=== PATIENT | female | born 1990 | race Caucasian/White ===

== ENCOUNTER 2019-04-20 12:09 | Emergency (ER) | payer OTHER ==
[2019-04-20 12:18] VITALS: BP 104/62; PULSE 72; TEMP 98.2; BMI 24.5
[2019-04-20] MEDS ORDERED: IBUPROFEN 600 MG TABLET (FP) PO ONE ×2 (12:32→12:36)
--- NOTE | 2019-04-20 12:36 | PDOC ---
History of Present Illness - General Chief Complaint: Injury Stated Complaint: RT FOOT PAIN Time Seen by Provider: 04/20/19 12:12 History Source: Patient Exam Limitations: No Limitations - History of Present Illness Initial Comments: 04/20/19 12:32 28-year-old female no past medical history here today complaining of injury to her right foot. Patient was playing soccer she fell forward and subsequently hyper dorsiflexed her right foot. Has been having pain just below the toes with walking. States the injury happened just prior to arrival. Denies any knee or hip pain. No head injury or upper extremity injury sustained during her fall. Has had minimal swelling and no ecchymosis since the injury. Did not take anything for pain prior to arrival. No previous history of ankle or foot injuries or previous orthopedic surgeries. Patient states she is not Past History - Past Medical History Allergies/Adverse Reactions: Allergies Allergy/AdvReac Type Severity Reaction Status Date / Time No Known Allergies Allergy Verified 04/20/19 12:09 Home Medications: Ambulatory Orders Ibuprofen [Motrin -] 600 mg PO TID PRN #60 tablet MDD 3 04/20/19 - Suicide/Smoking/Psychosocial Hx Smoking History: Never smoked Have you smoked in the past 12 months: No Information on smoking cessation initiated: No Hx Alcohol Use: No Drug/Substance Use Hx: No Review of Systems - Review of Systems Constitutional: No: Chills, Diaphoresis, Unexplained wgt Loss Respiratory: No: Cough, Shortness of Breath Cardiac (ROS): No: Chest Pain Musculoskeletal: Yes: Joint Pain Integumentary: No: Bruising Neurological: No: Numbness, Weakness All Other Systems: Reviewed and Negative *Physical Exam - Vital Signs Last Vital Signs Temp Pulse Resp BP Pulse Ox 98.2 F 72 20 104/62 100 04/20/19 12:09 04/20/19 12:09 04/20/19 12:09 04/20/19 12:09 04/20/19 12:09 - Physical Exam Comments: 04/20/19 12:34 Awake alert no acute distress. Patient's head is atraumatic. Lungs are clear bilaterally. Heart is regular without any murmurs rubs or gallops. Pelvis is stable nontender bilateral knees are nontender full range of motion. Patient's right ankle has negative bilateral malleoli tenderness. Full range of motion at the ankle. The right foot is tender over the distal third and fourth metatarsal. There is pain with dorsiflexion of the toes. No noted ecchymosis or swelling she is also tender over the mid foot on the plantar surface. Distally the patient is neurovascularly intact 2+ DP PT pulses ED Treatment Course - RADIOLOGY Radiology Studies Ordered: Category Date Time Status ANKLE-RIGHT [RAD] Stat Radiology 04/20/19 12:31 Ordered FOOT-RIGHT [RAD] Stat Radiology 04/20/19 12:31 Ordered Medical Decision Making - Medical Decision Making 04/20/19 12:35 19-year-old female with right foot injury sustained playing soccer. Differential includes foot sprain versus fracture. Motrin for her pain ice for x -rays of the right ankle and foot 04/20/19 13:03 pt with proximal 1 - 4 MT fractures, possible ricky sign between first and second metatarsal. sulaiman obtain ct foot r/o lisfranc injury. 04/20/19 13:51 pt wtijh second third and fourth mt fx, will put in posterior splint nonweight bearing. consult dr thomas/ frank. real awaiting call back 04/20/19 14:10 pt case d/w Ven[facility] ortho, recommend posterior splint. strict elevation, fu tomorrow in office at [address]. *DC/Admit/Observation/Transfer Diagnosis at time of Disposition: Foot fracture - Discharge Dispostion Disposition: HOME Decision to Admit order: No - Prescriptions Prescriptions: Ibuprofen [Motrin -] 600 mg PO TID PRN #60 tablet MDD 3 PRN Reason: Pain - Referrals Referrals: Gage Marie MD [Staff Physician] - - Patient Instructions Additional Instructions: you need to elevated your foot to reduce swelling. ice to reduce swelling every 2 hrs while awake. you can take motrin 600 mg every 8 hours as needed. you have broken three bones in your foot. you should follow up with a orthopedist. call DR Thomas or Dr marie, see referral information call to confirm you should be seen tomorrow. let them know you were seen in emergency room and were told to come to office 04/21. you should not put any weight on your foot. elevate your leg for the next 24 hour until followup. use crutches. return for any problems or concerns, worsening pain, color change to toes, numbness or tingling. - Post Discharge Activity Forms/Work/School Notes: Back to Work
== END 2019-04-20 14:50 | disposition home or self-care (01) ==
LOC: FER 12:09
PROC: 2W3QX1Z Immobilization of Right Lower Leg using Splint (ICD-10-PCS; principal; 2019-04-20)
DX: S92.901A Unspecified fracture of right foot, initial encounter for closed fracture (principal); W18.39XA Other fall on same level, initial encounter; Y93.66 Activity, soccer; Y92.322 Soccer field as the place of occurrence of the external cause
CPT/HCPCS: 73610-TC-RT-FY; 73630-TC-RT-FY; 73700-TC-RT; 99283-25

== ENCOUNTER 2019-04-28 22:04 | Emergency (ER) | payer OTHER ==
[2019-04-28 22:13] VITALS: BP 114/75; PULSE 62; TEMP 98.5; BMI 23.6
--- NOTE | 2019-04-28 22:29 | PDOC ---
Documentation entered by Ruben Hernandez SCRIBE, acting as scribe for Demetrio Gonzalez MD. Demetrio Gonzalez MD: This documentation has been prepared by the David krishnan Aiswarya, SCRIBE, under my direction and personally reviewed by me in its entirety. I confirm that the documentation accurately reflects all work, treatment, procedures, and medical decision making performed by me. History of Present Illness - General Chief Complaint: Pain, Acute Stated Complaint: FRACTURED FOOT LAST WEEK,PAIN History Source: Patient Exam Limitations: No Limitations - History of Present Illness Initial Comments: 04/28/19 22:42 The patient is a 28 year old female, with no significant PMH, who presents to the emergency department with right toe pain. The patient states she fractured her right foot last week and currently has a cast in place. The patient noticed pain, swelling and increased warmth to the right toes after she came back from work today. She reports pain has worsened since before and mentions she was not able to rest today. The patient denies any numbness or tingling. Denies any injury or falls. Denies any fever or chills. PAST MEDICAL HISTORY: no significant history PAST SURGICAL HISTORY: no significant history FAMILY HISTORY: no pertinent history SOCIAL HISTORY: Pt lives with family and is employed. MEDICATIONS: reviewed ALLERGIES: As per nursing notes Past History - Past Medical History Allergies/Adverse Reactions: Allergies Allergy/AdvReac Type Severity Reaction Status Date / Time No Known Allergies Allergy Verified 04/28/19 22:06 Home Medications: Ambulatory Orders NK [No Known Home Medication] 04/28/19 COPD: No - Suicide/Smoking/Psychosocial Hx Smoking History: Never smoked Have you smoked in the past 12 months: No Hx Alcohol Use: No Drug/Substance Use Hx: No Review of Systems - Review of Systems Able to Perform ROS?: Yes Comments:: 04/28/19 22:42 General: No fevers or chills, no weakness, no weight loss HEENT: No change in vision. No sore throat,. No ear pain CardioVascular: No chest pain or shortness of breath Respiratory:No cough, or wheezing. Gastrointestinal: no nausea, vomiting, diarrhea or constipation, No rectal bleeding Genitourinary: No dysuria, hematuria, or frequency Musculoskeletal: +right foot cast Neurologic: No headache, vertigo, dizziness or loss of consciousness Psychiatric: nor depression Skin: No rashes or easy bruising Endocrine: no increased thirst or abnormal weight change Allergic: no skin or latex allergy All other systems reviewed and normal *Physical Exam - Vital Signs Last Vital Signs Temp Pulse Resp BP Pulse Ox 98.5 F 62 16 114/75 100 04/28/19 22:10 04/28/19 22:10 04/28/19 22:10 04/28/19 22:10 04/28/19 22:10 - Physical Exam Comments: 04/28/19 22:42 GENERAL: The patient is awake, alert, and fully oriented, in no acute distress. HEAD: Normal with no signs of trauma. EYES: Pupils equal, round and reactive to light, extraocular movements intact, sclera anicteric, conjunctiva clear. EXTREMITIES: Normal range of motion, no edema. NEUROLOGICAL: Normal speech, normal gait. PSYCH: Normal mood, normal affect. SKIN:+ right foot cast in place with mild ecchymosis to the toe. . No obvious edema. Toes are warm. Capillary refill normal and sensation intact. Neurovascular intact. *DC/Admit/Observation/Transfer Diagnosis at time of Disposition: Foot fracture Qualifiers: Encounter type: subsequent encounter Fracture type: closed Laterality: right Fracture healing: with routine healing Qualified Code(s): S92.901D - Unspecified fracture of right foot, subsequent encounter for fracture with routine healing Foot fracture, right Qualifiers: Encounter type: initial encounter - Discharge Dispostion Condition at time of disposition: Stable Decision to Admit order: No - Referrals - Patient Instructions Additional Instructions: Elevate the leg and foot for the next 24 hours toes should be above the heart as much as possible. Return to the emergency department immediately with ANY new, persistent or worsening symptoms. Continue any medications as previously prescribed by your physician. You should follow up with your primary doctor as soon as possible regarding today's emergency department visit. . Please make sure your doctor reviews the results of your emergency evaluation. Thank you for coming to the Emergency Department today for your care. It was a pleasure to see you today. Please note that your evaluation is INCOMPLETE until you follow-up with your doctor. - Post Discharge Activity
== END 2019-04-28 22:33 | disposition home or self-care (01) ==
LOC: FER 22:04
DX: S92.901D Unspecified fracture of right foot, subsequent encounter for fracture with routine healing (principal); X58.XXXD Exposure to other specified factors, subsequent encounter; Y93.9 Activity, unspecified; Y92.9 Unspecified place or not applicable
CPT/HCPCS: 99281-25

== ENCOUNTER 2019-09-17 08:34 | Emergency (ER) | payer OTHER ==
[2019-09-17 08:42] VITALS: BP 112/77; PULSE 80; TEMP 98.9; BMI 25.4
[2019-09-17] MEDS ORDERED: SODIUM CHLORIDE 1,000 ML IV STA (08:46)
[2019-09-17] MEDS ORDERED: ONDANSETRON 4 MG/2 ML VIAL IVPB ONE (08:47)
--- NOTE | 2019-09-17 08:52 | PDOC ---
History of Present Illness - General Chief Complaint: Diarrhea Stated Complaint: "I have been vomiting and having diarrhea Time Seen by Provider: 09/17/19 08:45 - History of Present Illness Initial Comments: 09/17/19 08:53 Chief complaint: Nausea vomiting and diarrhea HPI: Woke up at 4 AM with crampy lower abdominal pain, subsequently experienced approximately 4 episodes of vomiting and diarrhea. No blood. Clear. No persistent abdominal pain. Review of systems: Denies fever/chills, headache, URI symptoms, sore throat, cough, chest pain, shortness of breath, abdominal pain, hematemesis, melena, bloody stool, urinary tract symptoms, vaginal bleeding or discharge, lightheadedness or dizziness, visual or focal neurologic symptoms. Past medical history: Otherwise healthy female. Recently fractured ankle which is healed. On control implant. No menses. Social history: Denies tobacco alcohol or drugs. Fully active and without disability. Visited brothers family yesterday, whose children had a stomach virus. Patient is a vegan, no suspicious food ingestions yesterday. Family history: Reviewed and noncontributory. Physical exam: Alert and oriented well-developed well-nourished no acute distress cheerful and cooperative. No abdominal pain. Mild nausea. Afebrile, vital signs normal No pallor or icterus. PERRLA, ENT clear Neck supple without bruit mass or nodes Chest clear, full breath sounds bilaterally CV regular without murmur rub or gallop. No tachycardia Abdomen nondistended. Bowel sounds normal. Soft without mass tenderness or organomegaly. Extremities no CCE Skin clear, no rash, adequate turgor, mildly dry mucous membranes Neurological intact. Gait stable and unimpaired Impression: Viral gastroenteritis, possible mild dehydration. No abdominal pain or other sign of serious gastrointestinal disease Plan: CBC, chemistries, UA, intravenous fluids and Zofran. Observation and further treatment depending on results and response to therapy. Past History - Past Medical History Allergies/Adverse Reactions: Allergies Allergy/AdvReac Type Severity Reaction Status Date / Time No Known Allergies Allergy Verified 09/17/19 08:36 Home Medications: Ambulatory Orders Ondansetron [Zofran *Odt*] 4 mg SL TID PRN #10 od.tablet 09/17/19 COPD: No Other medical history: ankle fracture - Psycho Social/Smoking Cessation Hx Smoking History: Never smoked Have you smoked in the past 12 months: No Hx Alcohol Use: No Drug/Substance Use Hx: No *Physical Exam - Vital Signs Last Vital Signs Temp Pulse Resp BP Pulse Ox 98.9 F 80 18 112/77 100 09/17/19 08:38 09/17/19 08:38 09/17/19 08:38 09/17/19 08:38 09/17/19 08:38 ED Treatment Course - LABORATORY CBC & Chemistry Diagram: 09/17/19 09:05 09/17/19 09:05 Medical Decision Making - Medical Decision Making 09/17/19 11:46 Laboratories reveal a white count of 17,000, otherwise no significant abnormalities. This is consistent with a viral gastroenteritis. Patient is much improved. There has been no vomiting or diarrhea. Nausea is controlled. Fully ambulatory and in no distress at discharge, Zofran as needed for nausea, Imodium for diarrhea, and fluids recommended. She is instructed to return to the ER if further serious symptoms develop. Discharge - Discharge Information Problems reviewed: Yes Clinical Impression/Diagnosis: Viral gastroenteritis Condition: Improved Disposition: HOME - Admission No - Additional Discharge Information Prescriptions: Ondansetron [Zofran *Odt*] 4 mg SL TID PRN #10 od.tablet PRN Reason: Nausea And/Or Vomiting - Follow up/Referral - Patient Discharge Instructions Patient Printed Discharge Instructions: DI for Viral Gastroenteritis -- Adult Additional Instructions: Clear liquids until symptoms resolved. Medication as directed for persistent nausea. [id number] Imodium as directed on the package for severe diarrhea. Return to ER or see primary physician if further symptoms develop, including fever/chills, abdominal pain, persistent vomiting or diarrhea, or other serious symptoms - Post Discharge Activity
[2019-09-17] MEDS ORDERED: ONDANSETRON 4 MG/2 ML VIAL ONE (08:55)
[2019-09-17 09:13] LABS: HEMOGLOBIN 14.8 GM/dl (10.7-15.3); RDW 11.7 % (11.6-15.6)
[2019-09-17 09:21] LABS: HEMATOCRIT 43.8 % (32.4-45.2); MCH 29.5 pg (25.7-33.7); MCHC 33.7 g/dl (32.0-36.0); MEAN CELL VOLUME 87.5 fl (80-96); MEAN PLT VOLUME 9.1 fl (7.5-11.1); PLATELET COUNT 256 K/MM3 (134-434); RBC 5.01 M/mm3 (3.60-5.2)
[2019-09-17 09:23] LABS: ALBUMIN 4.4 g/dl (3.4-5.0); BILIRUBIN,TOTAL 0.9 mg/dl (0.2-1); CALCIUM 8.9 mg/dl (8.5-10); CREATININE 0.6 mg/dl (0.55-1.3); POTASSIUM 3.9 mmol/L (3.5-5.1); TOT PROT 7.9 g/dl (6.4-8.2)
[2019-09-17 09:46] LABS: EPITHELIAL CELLS FEW /hpf
[2019-09-17 09:55] LABS: PLATELET ESTIMATE ADEQUATE
== END 2019-09-17 11:41 | disposition home or self-care (01) ==
LOC: FER 08:34
PROC: 3E033GC Introduction of Other Therapeutic Substance into Peripheral Vein, Percutaneous Approach (ICD-10-PCS; principal; 2019-09-17)
PROC: 3E0337Z Introduction of Electrolytic and Water Balance Substance into Peripheral Vein, Percutaneous Approach (ICD-10-PCS; 2019-09-17)
DX: A08.4 Viral intestinal infection, unspecified (principal)
CPT/HCPCS: 36415; 80053; 81003; 81015; 84703; 85025; 99283-25; J7030

== ENCOUNTER 2019-10-25 13:04 | Emergency (ER) | payer OTHER ==
[2019-10-25 13:17] VITALS: BP 111/75; PULSE 63; TEMP 98.5; BMI 24.5
[2019-10-25] MEDS ORDERED: predniSONE 20 MG TABLET (UD) PO ONE (13:31)
--- NOTE | 2019-10-25 13:41 | PDOC ---
History of Present Illness - General Chief Complaint: Eye Problem Stated Complaint: HAS BEEN DIAGNOSISED WITH LAZO'S PALSY LEFT EYE BU Time Seen by Provider: 10/25/19 13:08 - History of Present Illness Initial Comments: 10/25/19 13:34 28 F with no PMH presents to ED because she was diagnosed with Lazo's palsy 2 days ago but has been unable to fill her prescriptions. Pt states that 3 days ago, she noticed some drooping of her L face. She went to [facility] ED the day after and was started on prednisone and valacyclovir. Pt also was tested for Lyme, though the result did not come back yet. Pt was empirically started on doxy. Today, pt presents to ED because she was unable to obtain her prescriptions due to her insurance expiring. She states that she will be able to fill her scripts on Sunday when her new insurance begins. Pt denies any new complaints. Notes that her facial droop has improved. Past History - Past Medical History Allergies/Adverse Reactions: Allergies Allergy/AdvReac Type Severity Reaction Status Date / Time No Known Allergies Allergy Verified 09/17/19 08:36 Home Medications: Ambulatory Orders Prednisone 60 mg PO ONCE #6 tablet 10/25/19 COPD: No - Psycho Social/Smoking Cessation Hx Smoking History: Never smoked Have you smoked in the past 12 months: No Information on smoking cessation initiated: No Hx Alcohol Use: Yes (social) Drug/Substance Use Hx: No Review of Systems - Review of Systems Comments:: 10/25/19 13:41 "GENERAL/CONSTITUTIONAL: No fever or chills. No weakness. HEAD, EYES, EARS, NOSE AND THROAT: No change in vision. No ear pain or discharge. No sore throat. CARDIOVASCULAR: No chest pain, no shortness of breath, no loss of consciousness RESPIRATORY: No cough, wheezing, or hemoptysis. GASTROINTESTINAL: No nausea, vomiting, diarrhea or constipation. GENITOURINARY: No dysuria, frequency, or change in urination. MUSCULOSKELETAL: No joint or muscle swelling or pain. No neck or back pain. SKIN: No rash NEUROLOGIC: No vertigo, no change in strength/sensation. ENDOCRINE: No increased thirst. No abnormal weight change. HEMATOLOGIC/LYMPHATIC: No anemia, easy bleeding, or history of blood clots. ALLERGIC/IMMUNOLOGIC: No hives or skin allergy. *Physical Exam - Vital Signs Last Vital Signs Temp Pulse Resp BP Pulse Ox 98.5 F 63 16 111/75 99 10/25/19 13:07 10/25/19 13:07 10/25/19 13:07 10/25/19 13:07 10/25/19 13:07 - Physical Exam 10/25/19 13:41 "GENERAL: Awake, alert, and fully oriented, in no acute distress. HEAD: No signs of trauma EYES: PERRLA, EOMI, sclera anicteric, conjunctiva clear ENT: Auricles normal inspection, hearing grossly normal, nares patent, oropharynx clear without exudates. Moist mucosa NECK: Nontender, no stepoffs, Normal ROM, supple, no lymphadenopathy, JVD, or masses LUNGS: Breath sounds equal, clear to auscultation bilaterally. No wheezes, and no crackles HEART: Regular rate and rhythm, normal S1 and S2, no murmurs, rubs or gallops ABDOMEN: Soft, nontender, normoactive bowel sounds. No guarding, no rebound. No masses EXTREMITIES: Normal range of motion, no edema. No clubbing or cyanosis. No cords, erythema, or tenderness NEUROLOGICAL: + Mild L facial droop. 5/5 strength and sensation in all extremities, Normal speech, normal gait, normal cerebellar function SKIN: Warm, Dry, normal turgor, no rashes or lesions noted. Medical Decision Making - Medical Decision Making 10/25/19 13:41 28 F with [address] palsy, presenting to ED because she was unable to obtain medications. - 60mg prednisone now I called [facility] and confirmed that her lyme titer was negative. Will DC her doxy Prednisone 60mg tablet sent to pharmacy for tomorrow. Pt to fill her other prednisone prescription Sunday when her insurance kicks in. Pt is well appearing, with normal vitals. Clinically stable for DC at this time. I discussed the physical exam findings, ancillary test results and final diagnoses with the patient. I answered all of the patient's questions. The patient was satisfied with the care received and felt comfortable with the discharge plan and treatment plan. The patient agrees to follow up with the primary care physician within 24-72 hours. 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 Do not take the Doxycycline, as your Lyme test was negative. Use artificial tears to help keep your left eye moisturized. If you experience worsening facial drooping or any other concerning symptoms, return to the ER immediately. - Post Discharge Activity
[2019-10-25] MEDS ORDERED: predniSONE 20 MG TABLET (UD) ONE (14:04)
== END 2019-10-25 14:11 | disposition home or self-care (01) ==
LOC: FER 13:04
DX: G51.0 Bell's palsy (principal)
CPT/HCPCS: 99281-25